=== PATIENT | male | born 1965 | race Caucasian/White ===

== ENCOUNTER 2024-04-09 10:45 | Emergency (ER) | payer OTHER, SELFPAY ==
--- NOTE | ~2024-04-09 | US_ITS ---
RIGHT LOWER EXTREMITY VENOUS ULTRASOUND Ordering provider: Ania Mehta MD History: . swelling, pain of L calf/popliteal area, eval DVT . Comparison: None. FINDINGS: --COMMON FEMORAL: Patent and free of thrombus. Normal compressibility, phasic flow and augmentation. --PROXIMAL SUPERFICIAL FEMORAL: Patent and free of thrombus. Normal compressibility, phasic flow and augmentation. --DISTAL SUPERFICIAL FEMORAL: Patent and free of thrombus. Normal compressibility, phasic flow and au gmentation. --POPLITEAL: Patent and free of thrombus. Normal compressibility, phasic flow and augmentation. --POSTERIOR TIBIAL: Patent and free of thrombus. Normal compressibility, phasic flow and augmentation . IMPRESSION: Negative right lower extremity venous US. No deep vein thrombosis. Reviewed, dictated and finalized at location A.
[2024-04-09 11:02] VITALS: BP 144/71; PULSE 81; RESP 20; TEMP 36.3; O2SAT 95
--- NOTE | 2024-04-09 14:16 | ED_ITS ---
HPI - Extremity Problem General Chief complaint: Extremity Problem,Nontraumatic Stated complaint: Possible R leg DVT Time Seen by Provider: 04/09/24 13:19 History of Present Illness HPI Narrative: 58-year-old male presenting with concern for a blood clot in his leg. States that he pulled a muscle in his right thigh a few weeks ago. That has healed but he then developed pain and bruising behind his right knee over the last couple of days. States that the swelling is moving down his calf so his became concerned for blood clot. His boss then made him come in for evaluation today. He denies any other complaints. No chest pain, shortness of breath, fevers, numbness or weakness. Related Data Allergies Allergy/AdvReac Type Severity Reaction Status Date / Time No Known Allergies Allergy Verified 04/09/24 13:41 Review of Systems Review of Systems: All systems reviewed & are unremarkable except as noted in HPI and below Exam Narrative: GENERAL: Well-appearing, well-nourished, and in no acute distress. HEAD: Normocephalic, atraumatic. EYES: PERRLA and EOMI. ENT: Grossly unremarkable NECK: Supple. CHEST: No respiratory distress. HEART: Regular rate and rhythm EXTREMITIES: Normal range of motion. ecchymosis/tenderness in R popliteal region SKIN: Warm, dry, no rash. NEURO: No focal deficits. Alert and oriented x3. PSYCH: Normal mood and affect. Course Vital Signs Vital signs: Vital Signs Temperature 97.4 F L 04/09/24 11:02 Pulse Rate 81 04/09/24 11:02 Respiratory Rate 20 04/09/24 11:02 Blood Pressure 144/71 H 04/09/24 11:02 Pulse Oximetry 95 04/09/24 11:02 Oxygen Delivery Room Air 04/09/24 11:02 Temperature 97.4 F L 04/09/24 11:02 Pulse Rate 81 04/09/24 11:02 Respiratory Rate 20 04/09/24 11:02 Blood Pressure 144/71 H 04/09/24 11:02 Pulse Oximetry 95 04/09/24 11:02 Oxygen Delivery Room Air 04/09/24 11:02 MDM - Extremity (Nontraumatic) MDM Narrative Medical decision making narrative: 58-year-old male presenting with concerns for blood clot in his right leg. Vitals are stable. Exam remarkable for the above. Doppler shows no blood clot. Discussed appropriate supportive care and follow- up. Discharged in stable condition. Differential Diagnosis Differential diagnosis: Likely superficial thrombophlebitis, lower extremity edema, deep vein thrombosis of lower extremity and other Medical Records Attestation: I reviewed the patient's medical records. Imaging Data Radiologist's impression: ITS Impressions Venous Doppler Study 04/09/24 15:18 IMPRESSION: Negative right lower extremity venous US. No deep vein thrombosis. Critical Care Time Critical Care Time Critical Care Time: No Discharge Plan Discharge Clinical Impression: Leg pain, right Patient Disposition: Home, Self-Care Condition: Stable Instructions: Antibiotic Form, Sprain (ED) Additional Instructions: The ultrasound today shows no blood clot. Use Tylenol and ibuprofen for pain control. If your symptoms worsen or other concerning symptoms arise, please return to the ER. Follow-up/Referrals: UNKNOWN,DOCTOR [Primary Care Provider] -
== END 2024-04-09 15:44 | disposition home or self-care (01) ==
PROVIDERS: Emergency Provider Emergency Medicine
DX: M79.604 Pain in right leg (principal)
CPT/HCPCS: 93971; 99284